=== PATIENT | female | born 1985 | race Caucasian/White ===

== ENCOUNTER 2018-06-19 14:09 | Emergency (ER) | payer SELFPAY ==
[~2018-06-19] VITALS: Ht 162.6 cm; Wt 52.0 kg
[2018-06-19 14:50] VITALS: BP 148/98
== END 2018-06-19 17:04 | disposition left against medical advice (07) ==
LOC: ED 16:59
DX: S52.501A Unspecified fracture of the lower end of right radius, initial encounter for closed fracture (principal); F17.200 Nicotine dependence, unspecified, uncomplicated; Z88.2 Allergy status to sulfonamides; W18.39XA Other fall on same level, initial encounter; Y93.55 Activity, bike riding; Y92.89 Other specified places as the place of occurrence of the external cause; Y99.8 Other external cause status
CPT/HCPCS: 29125; 99284

== ENCOUNTER 2019-12-27 22:24 | Emergency (ER) | payer MEDICAID ==
--- NOTE | 2019-12-27 22:26 | NUR ---
NIL X 1 WHEN CALLED FOR TRIAGE; PERSON THAT CAME IN WITH PT. STATES SHE IS IN THE BATHROOM.
--- NOTE | 2019-12-27 22:33 | NUR ---
NIL X 2 WHEN CALLED FOR TRIAGE.
--- NOTE | 2019-12-27 22:56 | NUR ---
NIL X 3 WHEN CALLED FOR TRIAGE. THE PERSON THAT HAD PREVIOUSLY BEEN STATING SHE WAS IN THE BATHROOM IS ALSO NO LONGER IN LOBBY.
== END 2019-12-27 23:07 | disposition left against medical advice (07) ==
LOC: ED 23:01
DX: R11.0 Nausea (principal); R10.9 Unspecified abdominal pain

== ENCOUNTER 2020-03-05 07:38 | Emergency (ER) | payer MEDICAID ==
[~2020-03-05] VITALS: Ht 162.6 cm; Wt 59.1 kg
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
[2020-03-05] MEDS ORDERED: AZITHROMYCIN 500 MG TABLET ONE (09:19)
[2020-03-05] MEDS ORDERED: CEFTRIAXONE 250 MG ONE (09:19)
[2020-03-05] MEDS ORDERED: CEFTRIAXONE 250 MG IM ONE (09:30)
[2020-03-05] MEDS ORDERED: AZITHROMYCIN 500 MG TABLET PO ONE (09:30)
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
--- NOTE | 2020-03-05 09:54 | NUR ---
SET UP FOR PELVIC
--- NOTE | 2020-03-05 10:09 | NUR ---
PATIENT WAS NOT IN ROOM FOR A LONG PERIOD OF TIME, WENT LOOKING FOR HER. PATIENT FOUND IN BATHROOM DRESSED SAYING SHE'S LEAVING SHE HAS THINGS TO DO. ASKED HER TO SIGN AMA PAPERWORK THEN SHE SAID IF "WE CAN DO EXAM NOW SHE WILL STAY". LET PA KNOW
--- NOTE | 2020-03-05 10:18 | NUR ---
stand by assist pelvic with Rona FARR. no complications.
[2020-03-05 10:19] VITALS: BP 116/78
--- NOTE | 2020-03-05 10:24 | NUR ---
patient left prior to getting discharge paperwork.
== END 2020-03-05 10:25 | disposition home or self-care (01) ==
LOC: ED 09:23
DX: N93.9 Abnormal uterine and vaginal bleeding, unspecified (principal); K62.89 Other specified diseases of anus and rectum; F17.210 Nicotine dependence, cigarettes, uncomplicated
CPT/HCPCS: 36415; 84703; 87491; 87591; 96372; 99283; J0696

== ENCOUNTER 2020-07-28 07:12 | Emergency (ER) | payer MEDICAID ==
[~2020-07-28] VITALS: Ht 162.6 cm; Wt 55.0 kg
--- NOTE | 2020-07-28 07:20 | NUR ---
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
--- NOTE | 2020-07-28 07:29 | NUR ---
CALLED FOR TRIAGE, NO ANSWER
--- NOTE | 2020-07-28 08:12 | NUR ---
ERP AT BEDSIDE FOR PELVIC EXAM WITH THIS RN. NAD, VSS. NO ADDITIONAL NEEDS AT THIS TIME. CALL LIGHT WITHIN REACH, COMFORT MEASURES PROVIDED.
[2020-07-28] MEDS ORDERED: CEFTRIAXONE 250 MG ONE (08:52)
[2020-07-28] MEDS ORDERED: AZITHROMYCIN 250 MG TABLET ONE (08:57)
[2020-07-28] MEDS ORDERED: AZITHROMYCIN 500 MG TABLET PO ONE (09:00)
[2020-07-28] MEDS ORDERED: CEFTRIAXONE 250 MG IM ONE (09:00)
[2020-07-28] MEDS ORDERED: DIPH,PERTUSS(ACELL),TET VAC/PF 0.5 ML IM-VACC ONE ×2 (09:00→09:01)
[2020-07-28 09:08] LABS: CLUE CELLS NONE SEEN (NONE SEEN)
[2020-07-28 09:09] LABS: WET PREP WBCS FEW (FEW)
[2020-07-28] MEDS ORDERED: metroNIDAZOLE 500 MG TABLET ONE (09:30)
[2020-07-28] MEDS ORDERED: metroNIDAZOLE 500 MG TABLET PO ONE (09:30)
--- NOTE | 2020-07-28 09:39 | NUR ---
Patient given discharge instructions and they have confirmed that they understand the instructions. Patient ambulatory with steady gait.
[2020-07-28 09:40] VITALS: BP 122/80
[2020-07-28 09:51] LABS: HCG UR SG 1.033 (1.003-1.030); MICROSCOPIC AUTO
== END 2020-07-28 09:43 | disposition home or self-care (01) ==
LOC: ED 09:35
DX: N98.9 Complication associated with artificial fertilization, unspecified (principal); A54.9 Gonococcal infection, unspecified
CPT/HCPCS: 81001; 81025; 87086; 87210; 87491; 87591; 87808; 90471; 90715; 96372; 99284; J0696